=== PATIENT | male | born 1940 | race Caucasian/White ===

== ENCOUNTER 2018-09-22 11:18 | Outpatient (CLI) | payer MEDICARE ==
--- NOTE | 2018-09-22 18:31 | ULT ---
TESTICULAR ULTRASOUND: 09/22/18 Ultrasonography of the scrotum was performed for evaluation of right sided swelling. Documentary imag es and worksheets were provided and reviewed. Each testicle appears normal. The right testicle measures 3.9 x 2.2 x 3.9 cm and the left measures 4. 3 x 2.1 x 2.8 cm. No mass is seen in either. Blood flow is present in each. The right epididymis is 1.2 cm in length around the head and the left is 1.6 cm. The latter is slight ly increased in size but there was no abnormal flow seen in it. There is a 5 mm left epididymal cyst which is probably of no concern. There is some free fluid seen around the right testicle and I believe there may be some scrotal swell ing on this side. No varicoceles were seen. IMPRESSION: 1. Normal testicles. 2. 5 mm left epididymal cyst. Left epididymal head slightly large, but otherwise did not appear abnormal. 3. Some free fluid and swelling seen around the right side of the scrotum. POS: HOME
== END 2018-09-22 11:19 | disposition home or self-care (01) ==
LOC: BURULT 11:18
PROVIDERS: ATTEND Family Medicine
DX: N50.89 Other specified disorders of the male genital organs (principal); N50.3 Cyst of epididymis
CPT/HCPCS: 76870; 93976

== ENCOUNTER 2019-02-22 08:34 | Outpatient (CLI) | payer MEDICARE ==
--- NOTE | 2019-02-22 17:03 | CT ---
CT OF THE CHEST WITH CONTRAST: 02/22/[address] of the chest was done for lung cancer screening in a patient with a significant smoking his tory. Axial slices were acquired followed coronal and sagittal reconstructions. No pulmonary nodules of concern were detected. There is a very small semiopaque area in the right nikky g apex medially that I feel is more likely scar than a true ground glass density. Other than this, th e lungs do show some mild to moderate increase in interstitial markings, particularly in the lower dianelys ng zones. Some o this is dependent atelectasis but much of it is probably some mild fibrotic change. There are no effusions. No mediastinal mass was evident. There are nominal amounts of calcification in the patient's LAD. No pericardial effusion was seen. There may be a minimal hiatal hernia. The thickness of the upper esophagus in the low cervical/upper thoracic region was a little more than I often seen, but it is collapsed and so this may just be due to that. The visible portions of the upper abdomen showed no acute changes. There are two water densi ty structures in the visible portions of the left kidney. Statistically, these are most likely cysts. Ultrasound would be confirmatory if needed. There is also an ovoid 2.5 cm density just anterior to t he middle third of the right kidney. The density is slightly greater than water, being closer to the 20s. It still seems likely that it is a cyst attached to the kidney or similar benign structure. I do ubt its significance and given the patient's age, I am not convinced that further workup is needed. T he visible portions of the liver were unremarkable. The spleen was normal in size. IMPRESSION: 1. No evidence of focal pulmonary mass. 2. Some fibrotic changes suggested, particularly in the lower portions of each lung. 3. Small opacity in the medial right lung apex that is probably just scarring. 4. Minor amounts of calcification in the LAD. 5. Other findings as listed above. POS: HOME
--- NOTE | 2019-02-23 07:44 | ULT ---
ABDOMINAL AORTA ULTRASOUND: 02/22/19 Ultrasonography of the abdominal aorta was done as a screening study for aneurysm. The aorta is uniform in caliber throughout. There is no sign of an abdominal aortic aneurysm. Maximal aortic diameter proximally was 1.7 cm, mid aorta 1.3 cm, and distal aorta 1.4 cm. Both iliac arterie s have flow and are normal in size. A small amount of plaque was noted in the mid to distal abdominal aorta. IMPRESSION: No evidence of aneurysm. POS: HOME
== END 2019-02-22 08:35 | disposition home or self-care (01) ==
LOC: BURULT 08:34
PROVIDERS: ATTEND Family Medicine
DX: Z13.6 Encounter for screening for cardiovascular disorders (principal); F17.200 Nicotine dependence, unspecified, uncomplicated; R63.4 Abnormal weight loss; R91.8 Other nonspecific abnormal finding of lung field; I25.10 Atherosclerotic heart disease of native coronary artery without angina pectoris
CPT/HCPCS: 71260; 76706